=== PATIENT | male | born 1990 ===

== ENCOUNTER 2017-01-02 09:23 | Emergency (ER) | payer OTHER ==
[~2017-01-02] VITALS: Ht 154.9 cm; Wt 53.1 kg
[~2017-01-02 09:23] MED LIST: CYCLOBENZAPRINE10 MG PO; Motrin,Rufen800 MG PO
== END 2017-01-02 09:49 | disposition home or self-care (01) ==
LOC: ED 09:23
DX: B34.9 Viral infection, unspecified (principal)

== ENCOUNTER 2018-02-05 15:59 | Emergency (ER) | payer OTHER ==
[~2018-02-05] VITALS: Wt 52.6 kg
== END 2018-02-05 17:49 | disposition home or self-care (01) ==
LOC: ED 15:59
DX: Z02.79 Encounter for issue of other medical certificate (principal)